=== PATIENT | female | born 1995 | race Caucasian/White ===

== ENCOUNTER 2017-07-12 15:10 | Emergency (ER) | payer OTHER ==
[~2017-07-12] VITALS: Ht 170.2 cm; Wt 89.6 kg
[~2017-07-12 15:10] MED LIST: HYDR-3533 PO; TOBRA.3%O LEFT EYE
[2017-07-12 15:19] VITALS: BP 118/82; PULSE 78; RESP 16; TEMP 99.5; O2SAT 98
[2017-07-12] MEDS ORDERED: VIST50CA PO (15:42)
[2017-07-12] MEDS ORDERED: FLUO40CA PO (15:42)
--- NOTE | 2017-07-12 16:38 | PD ---
HPI Chief Complaint: ENT Complaint Time Seen by Provider: 16:25 Travel History International Travel<30 days: No Contact w/Intl Traveler<30days: No Traveled to known affect area: No History of Present Illness HPI 22-year-old female here with sore throat 2 days. Denies fever chills. Since very moderate. Denies difficulty swallowing. No aggravating or alleviating factors. PFSH Past Medical History Asthma: Yes Diminished Hearing: No Immunizations Current: Yes ?: Unknown Social History Alcohol Use: No Tobacco Use: No Substance Use: Yes (IV meth user) Allergies-Medications (Allergen,Severity, Reaction): Coded Allergies: penicillin G (Unverified Allergy, Unknown, 07/12/17) Reported Meds & Prescriptions Reported Meds & Active Scripts Active Reported Vistaril (Hydroxyzine Pamoate) 50 Mg Cap 50 Mg PO BID Fluoxetine (Fluoxetine HCl) 40 Mg Cap 40 Cap PO DAILY Review of Systems Except as stated in HPI: all other systems reviewed are Neg Physical Exam Narrative GENERAL: Alert and well-appearing 22-year-old female SKIN: Warm and dry. HEAD: Normocephalic. EYES: No scleral icterus. No injection or drainage. Ear/nose/throat: Mild pharyngeal erythema without tonsillar hypertrophy or exudate. Uvula is midline. Nares patent. Normal phonation. NECK: Supple, trachea midline. No JVD or lymphadenopathy. CARDIOVASCULAR: Regular rate and rhythm without murmurs, gallops, or rubs. RESPIRATORY: Breath sounds equal bilaterally. No accessory muscle use. GASTROINTESTINAL: Abdomen soft, non-tender, nondistended. MUSCULOSKELETAL: No cyanosis, or edema. BACK: Nontender without obvious deformity. No CVA tenderness. Data Data Last Documented VS Vital Signs Date Time Temp Pulse Resp B/P (MAP) Pulse Ox O2 Delivery O2 Flow Rate FiO2 07/12/17 15:40 16 07/12/17 15:19 99.5 78 118/82 (94) 98 Orders Orders Group A Rapid Strep Screen (07/12/17 15:38) Strep Culture (Group A) (07/12/17 15:40) MDM Medical Decision Making Medical Screen Exam Complete: Yes Emergency Medical Condition: Yes Differential Diagnosis Strep pharyngitis, viral pharyngitis, URI Narrative Course 22-year-old female here with sore throat. She is nontoxic appearing. Strep screen is negative. Diagnosis Primary Impression: Pharyngitis Qualified Codes: J02.9 - Acute pharyngitis, unspecified Referrals: Primary Care Physician Disposition: 01 DISCHARGE HOME Condition: Stable [address] Jul 12, 2017 16:37
== END 2017-07-12 18:11 | disposition home or self-care (01) ==
LOC: PHEFT 15:10
DX: J02.9 Acute pharyngitis, unspecified (principal); J45.909 Unspecified asthma, uncomplicated; Z79.899 Other long term (current) drug therapy; Z88.0 Allergy status to penicillin
CPT/HCPCS: 87081; 87880; 99283